=== PATIENT | male | born 1970 | race Caucasian/White ===

== ENCOUNTER 2018-03-21 22:56 | Emergency (ER) | payer BC, OTHER ==
[~2018-03-21] VITALS: Ht 195.6 cm; Wt 215.0 kg
[~2018-03-21 22:56] MED LIST: IBUP800T23 PO; METH750T2 PO
[2018-03-21 22:58] VITALS: BP 162/88; PULSE 96; RESP 22; TEMP 98.3; O2SAT 96
--- NOTE | 2018-03-21 23:36 | RADRPT ---
EXAM DATE/TIME: 03/21/2018 23:22 [facility] COMPARISON: No previous studies available for comparison. INDICATIONS : Ankle pain. MEDICAL HISTORY : None. SURGICAL HISTORY : None. ENCOUNTER: Initial ACUITY: 1 day PAIN SCORE: 5/10 LOCATION: Right ankle FINDINGS: Three view exam was performed of the right ankle. The bony structures are in normal alignment. No e vidence of fracture, dislocation, or soft tissue swelling. The ankle mortise is intact. Extensive so ft tissue calcifications in the lower leg. Bony mineralization is normal. Prominent spurring of the calcaneus CONCLUSION: Suspected venostasis of the right lower leg. Prominent calcaneal spurring. Satinder Fernandez MD on March 21, 2018 at 23:34 Board Certified Radiologist. This report was verified electronically.
--- NOTE | 2018-03-21 23:49 | PD ---
HPI Chief Complaint: Injury Time Seen by Provider: 23:49 Travel History International Travel<30 days: No Contact w/Intl Traveler<30days: No Traveled to known affect area: No History of Present Illness HPI 47-year-old male came to the emergency room with history of right ankle pain that has been going on for past 10 days. Patient says the pain is worse after he has worked for a couple days. His job entails mostly standing on his feet and walking around some. At the end of the day the pain starts to get really worse. No history of trauma. Today the pain was really excruciating. That is when he decided to come to the emergency room. Vital signs are stable. Patient says the pain gets better when he is not walking and has put his feet up. The pain is mostly on the lateral aspect of the ankle. PFSH Past Medical History Narrative Medical List of his past medical, surgical, social family history is reviewed from the nursing note Cardiovascular Problems: Yes Diminished Hearing: No Musculoskeletal: Yes (CAT SCRATH FEVER LEFT LEG) Tetanus Vaccination: Unknown Influenza Vaccination: No Past Surgical History Abdominal Surgery: Yes (GASTRIC BYPASS, unbelicus hernia repair) Other Surgery: Yes (2001 GASTRIC BIPASS) Social History Alcohol Use: Yes (occsionally) Tobacco Use: No Substance Use: No Allergies-Medications (Allergen,Severity, Reaction): Coded Allergies: No Known Allergies (Verified Adverse Reaction, Unknown, 03/21/18) Comments No known drug allergies. Reported Meds & Prescriptions Reported Meds & Active Scripts Active Ibuprofen 600 Mg Tab 600 Mg PO Q6H PRN Methocarbamol 750 Mg Tab 750 Mg PO TID PRN Ibuprofen 800 Mg Tab 800 Mg PO TID PRN Narrative Medication List of his home medications reviewed from the nursing note. Review of Systems Except as stated in HPI: all other systems reviewed are Neg Musculoskeletal: Positive: Pain Physical Exam Narrative GENERAL: Awake, alert, morbidly obese, mild distress SKIN: Focused skin assessment warm/dry. HEAD: Atraumatic. Normocephalic. EYES: Pupils equal and round. No scleral icterus. No injection or drainage. ENT: No nasal bleeding or discharge. Mucous membranes pink and moist. NECK: Trachea midline. No JVD. CARDIOVASCULAR: Regular rate and rhythm. No murmur appreciated. RESPIRATORY: No accessory muscle use. Clear to auscultation. Breath sounds equal bilaterally. GASTROINTESTINAL: Abdomen soft, non-tender, nondistended. Hepatic and splenic margins not palpable. MUSCULOSKELETAL: No obvious deformities. No clubbing. No cyanosis. No edema. Tenderness on palpation over the lateral malleolar NEUROLOGICAL: Awake and alert. No obvious cranial nerve deficits. Motor grossly within normal limits. Normal speech. PSYCHIATRIC: Appropriate mood and affect; insight and judgment normal. Data Data Last Documented VS Orders Orders Ice/Cold Pack (03/21/18 23:04) Ankle, Complete ([id number]) (03/21/18 23:04) Ed Discharge Order (03/22/18 00:02) [facility] Medical Decision Making Medical Screen Exam Complete: Yes Emergency Medical Condition: Yes Medical Record Reviewed: Yes Differential Diagnosis Ankle arthritis Narrative Course 12:08 AM x-ray was done from triage and has been read by the radiologist as degenerative joint disease. I explained this to the patient. He needs to give rest to his ankle joint. The early arthritis is probably setting given his extreme body weight. I will give him name of the unisaw operator satellite instruction facilitator to follow- up with Diagnosis Primary Impression: Arthritis Additional Impressions: Ankle joint pain Qualified Codes: M25.571 - Pain in right ankle and joints of right foot Morbid obesity Referrals: Pratima Ornelas DPTigre 2 days Departure Forms: Tests/Procedures, Work Release Enter return to work date: March 25, 2018 Additional Instructions: Follow-up with the unis[employer] operator is name and number been provided to you who can make further recommendations regarding the joint arthritis. Do not bear weight and give rest to your foot and ankle over next couple days. Take medication as per the prescription direction. Med/Other Pt SpecificInfo: Prescription(s) given Scripts Ibuprofen (Ibuprofen) 600 Mg Tab 600 MG PO Q6H Y for Pain/Inflammation, #40 TAB 0 Refills Prov: Sunday Amin MD 03/22/18 Disposition: 01 DISCHARGE HOME Condition: Stable Sunday Amin MD March 21, 2018 23:49
[2018-03-22] MEDS ORDERED: IBUP-232 PO (00:05)
== END 2018-03-22 00:27 | disposition home or self-care (01) ==
LOC: NEPD 22:56
DX: M19.90 Unspecified osteoarthritis, unspecified site (principal); M25.571 Pain in right ankle and joints of right foot; E66.01 Morbid (severe) obesity due to excess calories
CPT/HCPCS: 73610; 99283

== ENCOUNTER 2018-03-28 16:22 | Emergency (ER) | payer BC ==
[~2018-03-28] VITALS: Ht 195.6 cm; Wt 235.0 kg
[~2018-03-28 16:22] MED LIST changes: +IBUP-232 PO
[2018-03-28 16:26] VITALS: BP 153/76; PULSE 73; RESP 20; TEMP 98.3; O2SAT 99
--- NOTE | 2018-03-28 16:45 | PD ---
HPI Chief Complaint: Injury Time Seen by Provider: 16:34 Travel History International Travel<30 days: No Contact w/Intl Traveler<30days: No Traveled to known affect area: No History of Present Illness HPI Patient comes to the emergency department complaining of continued right foot pain ongoing for 3 weeks. Patient denies any known trauma. Patient reports that pain usually begins about 6 hours after starting his job when he stands on his feet. Patient reports by third day his pain is improving and goes away when he is off of work, but then comes back again after being off work for 3 days. Patient denies any radiation of the pain. Describes pain as a burning aching pain. Patient reports was seen previously for this and had ankle x-ray done that was negative and he has a scheduled follow-up appointment this Tuesday with sample dye mixer however was concerned and did not want to wait that long. Patient reports pain is over the lateral aspect of his right foot. Severity mild. Patient reports she has had flatfeet most of his life and it has not been using insert secondary to cough. Patient states that he did try some inserts that he got from a shoe store that seemed to help initially, but then when he switched inserts to a different size made the pain worse. PFSH Past Medical History Cardiovascular Problems: Yes Diminished Hearing: No Musculoskeletal: Yes (CAT SCRATH FEVER LEFT LEG) Past Surgical History Abdominal Surgery: Yes (GASTRIC BYPASS, unbelicus hernia repair) Other Surgery: Yes (2001 GASTRIC BIPASS) Social History Alcohol Use: Yes (occsionally) Tobacco Use: No Substance Use: No Allergies-Medications (Allergen,Severity, Reaction): Coded Allergies: No Known Allergies (Verified Adverse Reaction, Unknown, 03/28/18) Reported Meds & Prescriptions Reported Meds & Active Scripts Active Ibuprofen 600 Mg Tab 600 Mg PO Q6H PRN Review of Systems Except as stated in HPI: all other systems reviewed are Neg Physical Exam Narrative GENERAL: Well-developed, overly nourished, in no acute distress, and non-ill appearing. SKIN: Focused skin assessment warm and dry. HEAD: Atraumatic. Normocephalic. EYES: Pupils equal and round. EOMI. No scleral icterus. No injection or drainage. ENT: No nasal bleeding or discharge. Mucous membranes pink and moist. NECK: Trachea midline. Supple. No nuclear rigidity. CARDIOVASCULAR: Dorsal pulses 2+, intact, and equal bilaterally. Capillary refill less than 2 seconds. RESPIRATORY: No accessory muscle use. No respiratory distress. MUSCULOSKELETAL: No obvious deformities. No clubbing. No cyanosis. No edema. Full range of motion. Patient reports tenderness palpation over lateral aspect of right foot proximal fifth metatarsal. No crepitus, soft tissue swelling, or ecchymosis noted. NEUROLOGICAL: Awake and alert. No obvious cranial nerve deficits. Motor grossly within normal limits. Normal speech. PSYCHIATRIC: Appropriate mood and affect; insight and judgment normal. Data Data Last Documented VS Vital Signs Date Time Temp Pulse Resp B/P (MAP) Pulse Ox O2 Delivery O2 Flow Rate FiO2 03/28/18 16:26 98.3 73 20 153/76 (101) 99 Orders Orders Foot, Complete ([id number]) (03/28/18 ) Ed Discharge Order (03/28/18 17:24) MDM Medical Decision Making Medical Screen Exam Complete: Yes Emergency Medical Condition: Yes Medical Record Reviewed: Yes Interpretation(s) Last Impressions Foot X-Ray 03/28/18 0000 Signed Impressions: Service Date/Time: Wednesday, March 28, 2018 17:02 - CONCLUSION: 1. No acute fracture or dislocation. Michael No MD Differential Diagnosis Fracture, sprain, contusion, dislocation, tendinitis, arthritis Narrative Course There is no clinical evidence for fracture. There is no clinical evidence to suspect bony injury by exam. No obvious ligamental injury or internal derangement is noted at this time. The distal extremity appears neurovascularly intact, without evidence of neurovascular injury nor compartment syndrome. Tendon exam also was intact. The patient was discharged and given warnings for vascular compromise. The patient is to follow up with sample dye mixer as scheduled. The patient agrees with plan. Patient in no obvious distress upon re-evaluation. All pertinent Radiology result(s) discussed with patient. Any questions/concerns in reference to patient diagnosis/condition discussed and clarified prior to patient's discharge. Reinforced sheer importance of close follow up with sample dye mixer as scheduled. Instructed patient to return to ED immediately, if symptoms return/ worsen. Patient showed understanding of above instructions. Further instructions and recommendations were detailed in discharge paperwork. Patient left without difficulty out of ED at discharge. Diagnosis Primary Impression: Right foot pain Patient Instructions: General Instructions Additional Instructions: Follow-up with sample dye mixer on Tuesday as scheduled. Apply ice to affected area 20 minutes prior as needed for pain. Return to the emergency department if symptoms get worse. Disposition: 01 DISCHARGE HOME Condition: Stable Ignacio Pavon March 28, 2018 16:45
--- NOTE | 2018-03-28 17:14 | RADRPT ---
EXAM DATE/TIME: 03/28/2018 17:02 [facility] COMPARISON: No previous studies available for comparison. INDICATIONS : Patient states severe pain laterally 3 weeks ago with no trauma except bearing his weight , continues to be painful. MEDICAL HISTORY : None. SURGICAL HISTORY : None. ENCOUNTER: Initial ACUITY: 3 weeks PAIN SCORE: 8/10 LOCATION: Right lateral FINDINGS: Three view examination of the right foot demonstrates no soft tissue swelling, dislocation, or fractu re. The tarsal bones appear intact. The interphalangeal and metatarsophalangeal joints are intact. The calcaneus is intact. Plantar calcaneal spurring. Bony mineralization is normal. CONCLUSION: 1. No acute fracture or dislocation. Michael No MD on March 28, 2018 at 17:11 Board Certified Radiologist. This report was verified electronically.
== END 2018-03-28 17:50 | disposition home or self-care (01) ==
LOC: NEPK 16:22
DX: M79.671 Pain in right foot (principal)
CPT/HCPCS: 73630; 99283